=== PATIENT | female | born 1950 | race African-American/Black ===

== ENCOUNTER 2018-11-30 10:35 | Emergency (ER) | payer MEDICARE ==
[~2018-11-30] VITALS: Ht 170.2 cm; Wt 112.0 kg
--- OUTSIDE RECORDS SUMMARY | 2018-11-30 10:37 | XMS REPORT | Clinical Summary ---
Author Author KELLY [facility] Organization [facility] Address Unknown Phone Unavailable Care Team Providers Care Shovel Mechanic Name Role Phone GabbyLul Pawan PCP Allergies Comments Active Allergy Reactions Severity Noted Date Adhesive Rash Low 09/12/2015 Amoxicillin Nausea And 12/20/2017 Vomiting Sulfamethoxazole-Trimetho Nausea And 09/12/2015 prim Vomiting Ciprofloxacin Nausea And 09/12/2015 Vomiting Clindamycin Nausea And 09/12/2015 Vomiting Hydrocodone-Acetaminophen Nausea And 12/20/2017 Vomiting myalgia Simvastatin Other (See 09/12/2015 Comments) Medications End Date Status Medication Sig Dispensed Refills Start Date Active atorvastatin (LIPITOR) 10 Take 10 mg by 0 MG tablet mouth daily. Active fluticasone (FLONASE) 50 1 spray by 0 mcg/actuation nasal spray Nasal route daily. Active levothyroxine (SYNTHROID, Take 100 mcg 0 LEVOTHROID) 100 MCG by mouth tablet Every morning on an empty stomach. Active losartan (COZAAR) 100 MG Take 100 mg 0 tablet by mouth daily. Active ranitidine (ZANTAC) 150 Take 150 mg 0 MG capsule by mouth daily . Active pentosan polysulfate Take 100 mg 0 (ELMIRON) 100 mg capsule by mouth 3 (three) times daily before meals. Active oxybutynin (DITROPAN-XL) Take 5 mg by 0 5 MG 24 hr tablet mouth daily. Active magnesium hydroxide (MILK Take 30 mLs 1 Bottle 0 OF MAGNESIA) 400 mg/5 mL by mouth 6 Susp daily as needed. Active albuterol sulfate (PROAIR Inhale by 0 HFA INHL) mouth via inhaler. Active amLODIPine (NORVASC) 10 Take 10 mg by 0 MG tablet mouth daily. Active pantoprazole (PROTONIX) Take 40 mg by 0 40 MG tablet mouth daily. 12/20/2017 Discontinued amLODIPine (NORVASC) 5 MG Take 5 mg by 0 tablet mouth daily. 12/20/2017 Discontinued indapamide (LOZOL) 2.5 MG Take 2.5 mg 0 tablet by mouth every morning. 12/25/2017 Discontinued azithromycin (ZITHROMAX) Take 250 mg 0 250 MG tablet by mouth daily Take by mouth as directed. . 12/25/2017 Discontinued traMADol (ULTRAM) 50 mg Take 50 mg by 0 tablet mouth every 6 (six) hours as needed for Pain. 01/25/2018 aspirin 325 MG EC tablet Take 1 tablet 30 tablet 0 (325 mg 8 total) by mouth daily for 30 days. 01/24/2018 oxyCODONE-acetaminophen Take 1-2 120 tablet 0 (PERCOCET) 5-325 mg per tablets by 8 tablet mouth every 4 (four) hours as needed for Pain for up to 30 days. Max Daily Amount: 12 tablets 01/01/2018 promethazine (PHENERGAN) Take 1 tablet 30 tablet 0 12.5 MG tablet (12.5 mg 8 total) by mouth every 6 (six) hours as needed for Nausea for up to 7 days. 01/09/2018 methocarbamol (ROBAXIN) Take 1 tablet 60 tablet 0 500 MG tablet (500 mg 8 total) by mouth 4 (four) times daily for 15 days. Active Problems Problem Noted Date Arthritis of left knee 12/23/2017 DJD (degenerative joint disease) of knee 12/23/2017 Osteoarthrosis, localized, primary, knee, right 10/10/2015 Right knee DJD 10/10/2015 Encounters Care Team Description Date Type Specialty Jad Mills MD ARTHROPLASTY,KNEE UNILATERAL 12/23/2017 Surgery Mansoor Mckeon MD 12/23/2017 Anesthesia Event Jad Mills MD 12/23/2017 [facility] General Internal Medicine - Encounter 12/25/2017 Jad Mills MD Resource, Oqmt Preadmit Phone 12/20/2017 Hospital Pre-Admission Testing Encounter Annie Browne PA 12/11/2017 Orders Only after 11/29/2017 Social History Date Tobacco Use Types Packs/Day Years Used Never Smoker Smokeless Tobacco: Never Used Alcohol Use Drinks/Week oz/Week Comments No Sex Assigned at Date Recorded Not on file Industry Job Start Date Occupation Not on file Not on file Not on file Travel End Travel History Travel Start No recent travel history available. Last Filed Vital Signs Time Taken Vital Sign Reading 12/25/2017 12:10 PM CDT Blood Pressure 155/67 12/25/2017 12:10 PM CDT Pulse 73 12/25/2017 12:10 PM CDT Temperature 36.4 C (97.5 F) 12/25/2017 12:10 PM CDT Respiratory Rate 16 12/25/2017 12:10 PM CDT Oxygen Saturation 98% - Inhaled Oxygen - Concentration 12/23/2017 6:18 AM CDT Weight 113.4 kg (250 lb) 12/23/2017 6:18 AM CDT Height 170.2 cm (5' 7") 12/23/2017 6:18 AM CDT Body Mass Index 39.16 Plan of Treatment Not on file Implants Device Identifier Shelf Expiration Date Model / Serial / Lot Implanted Type Area Manufactur er 04/06/2017 6194-1-001 / / [id number] Cement Bone Smplx Hv 6194-1-001 - Cement/Damon Right: Knee PAIGE:ST [id number] ler/Adhesi AUDREY Implanted: Qty: 1 on 10/10/2015 by Jad Perez MD 03/07/2019 6194-1-001 / / [id number] Cement Bone Smplx Hv 6194-1-001 - Cement/Damon Left: Knee PAIGE:ST [id number] ler/Adhesi AUDREY Implanted: Qty: 1 on 12/23/2017 by Jad Perez MD 08/15/2020 5550-L-339 / / [id number] Patella Tri Asymmetric 33x9mm Joints Right: Knee PAIGE:ST 5550-L-339 - [id number] AUDREY Implanted: Qty: 1 on 10/10/2015 by Jad Calles MD CS 08/07/2020 5510-F-402 / / [id number] Femoral #4 R 5510-F-402 - Joints Right: Knee PAIGE:ST [id number] AUDREY Implanted: Qty: 1 on 10/10/2015 by Jad Calles MD 08/29/2020 5520-B-300 / / [id number] Baseplt Tri Prim Tib 3 5520-B-300 - Joints Right: Knee PAIGE:ST [id number] AUDREY Implanted: Qty: 1 on 10/10/2015 by Jad Calles MD 06/10/2020 5531-G-309 / / [id number] Insrt Tib Bearing #3 9mm X1 - Joints Right: Knee PAIGE:ST [id number] AUDREY Implanted: Qty: 1 on 10/10/2015 by Jad Calles MD 10/31/2020 5537-G-311 / / [id number] Insrt Tib + Stab X3#3 11mm Ts Joints Left: Knee PAIGE:ST 5537-G-311 - [id number] AUDREY Implanted: Qty: 1 on 12/23/2017 by Jad Calles MD 07/28/2022 5550-L-319 / / [id number] Patella Tri Asymmetric 31x9mm Joints Left: Knee PAIGE:ST 5550-L-319 - [id number] AUDREY Implanted: Qty: 1 on 12/23/2017 by Jad Calles MD 07/28/2022 5515-F-301 / / [id number] Comp Fem Ps Raymundo No.3 L 5515-F-301 - Joints Left: Knee PAIGE:ST [id number] AUDREY Implanted: Qty: 1 on 12/23/2017 by Jad Calles MD 10/29/2022 5521-B-300 / / [id number] Baseplt Triathlon Ts Sz3 5521-B-300 Joints Left: Knee PAIGE:ST - [id number] AUDREY Implanted: Qty: 1 on 12/23/2017 by Jad Calles MD Procedures Comments Procedure Name Priority Date/Time Associated Diagnosis RHYTHM STRIP - SCAN 12/30/2017 9:40 AM CDT HEMOGLOBIN AND HEMATOCRIT Routine 12/25/2017 4:36 AM CDT BASIC METABOLIC PANEL (7) Routine 12/25/2017 4:36 AM CDT TRANSFUSION SERVICE 12/24/2017 REPORT - SCAN 6:01 PM CDT HEMOGLOBIN AND HEMATOCRIT Routine 12/24/2017 4:01 AM CDT BASIC METABOLIC PANEL (7) Routine 12/24/2017 4:01 AM CDT ARTHROPLASTY,KNEE 12/23/2017 Primary osteoarthritis of UNILATERAL 9:55 AM CDT left knee Special Needs (SPINAL EPIDURAL ADDUCTOR CANAL BLOCK, PAIGE TRIATHLON) TISSUE EXAM AP Routine 12/23/2017 9:40 AM CDT ANESTHESIA PERIPHERAL Routine 12/23/2017 BLOCK 8:58 AM CDT ANESTHESIA SPINAL BLOCK Routine 12/23/2017 8:58 AM CDT TYPE AND SCREEN, Routine 12/23/2017 AUTOMATED 7:50 AM CDT after 11/29/2017 Results * RHYTHM STRIP - SCAN (12/30/2017 9:40 AM CDT) Narrative Performed At * Hemoglobin and hematocrit (12/25/2017 4:36 AM CDT) Only the most recent of 2 results within the time period is included. Hemoglobin 10.8 (L) 11.2 - 15.7 GM/DL [facility] Hematocrit 32.9 (L) 34.1 - 44.9 % [facility] Specimen Blood Performing Organization Address City/State/Zipcode Phone Number [facility] [address] [place] [address] MEDICAL CENTER * Basic Metabolic Panel (12/25/2017 4:36 AM CDT) Only the most recent of 2 results within the time period is included. Sodium 139 136 - 145 meq/L [facility] Potassium 4.0 3.5 - 5.1 meq/L [facility] Chloride 109 (H) 98 - 107 meq/L [facility] CO2 23 22 - 29 meq/L [facility] BUN 15 7 - 21 mg/dL [facility] Creatinine 0.88 0.57 - 1.25 mg/dL [facility] Glucose 85 70 - 105 mg/dL [facility] Calcium 8.8 8.4 - 10.2 mg/dL [facility] EGFR 78Comment: ESTIMATED GFR IS mL/min/1.73 sq m [facility] NOT ACCURATE CREATININE [facility] CLEARANCE IN PREDICTING GLOMERULAR FILTRATION RATE. ESTIMATED GFR IS NOT APPLICABLE FOR DIALYSIS PATIENTS. Specimen Blood Performing Organization Address City/State/Zipcode Phone Number [place] [phone] [place] [address] [facility] * TRANSFUSION SERVICE REPORT - SCAN (12/24/2017 6:01 PM CDT) Narrative Performed At * Tissue Exam (12/23/2017 9:40 AM CDT) Case Report Surgical Pathology [facility] Report [facility] Case: [id number] Authorizing Provider:Jad Mills,Collected: 12/23/2017 0940 Ordering Location: [facility] PERIOPERATIVE Received: 12/23/2017 1121 SERVICES Pathologist: Facundo Ybarra MD Specimen:Condyle,Left Knee DIAGNOSIS BONE, LEFT KNEE, ARTHROPLASTY: [facility] -OSTEOARTHRITIS [facility] Signing Pathologist Direct Phone Line: [phone] CPT Code(s) 76428 [facility] [address] [facility] CLINICAL HISTORY Primary osteoarthritis left [facility] knee [facility] SPECIMEN SOURCE Left knee condyle [facility] GROSS DESCRIPTION Received fresh labeled [facility] "condyle, left knee" are [facility] multiple irregular, david-white to yellow-ge portions of soft and osseous tissue to include the tibial plateau and femoral condyles measuring 13.5 x 9.5 x 1.5 cm in aggregate. The articular surfaces are david-white to yellow-ge and display focal areas of eburnation with obliteration of the demarcation between cortical and cancellous bone in these areas on cross section. Section code: A1-A2, bone for decalcification; A3, soft tissue for decalcification. DB/ew MICROSCOPIC DESCRIPTION The sections show [facility] reduplication of the [facility] with eburnation and osteophyte formation. The synovial tissue reveals subsynovial edema with chronic inflammation. Specimen Tissue - Condyle,Left Knee Performing Organization Address City/State/Zipcode Phone Number [facility] [address] [place] [address] [facility] * ANESTHESIA PERIPHERAL BLOCK (12/23/2017 8:58 AM CDT) Narrative Performed At Piero Rossi 12/23/20178:58 AM Peripheral Block Patient location during procedure: pre-op Start time: 12/23/2017 8:35 AM End time: 12/23/2017 8:45 AM Staffing Anesthesiologist: MANSOOR MCKEON Resident/BEATER TENDER: PIERO ROSSI Performed by: resident/BEATER TENDER Preanesthetic Checklist Completed: patient identified, site marked, surgical consent, pre-op evaluation, timeout performed, IV checked, risks and benefits discussed and monitors and equipment checked Peripheral Block Patient position: supine Prep: ChloraPrep Patient monitoring: special events driver, continuous pulse ox and heart rate Block type: Adductor canal Laterality: left Injection technique: catheter Procedures: ultrasound guided and landmark technique Local infiltration: ropivicaine Infiltration strength: 0.5 % Dose: 25 mL Needle Needle type: Tuohy Needle gauge: 17 G Needle length: 100 mm Assessment Injection assessment: local visualized surrounding nerve on ultrasound, incremental injection, no paresthesia on injection and negative aspiration for heme Paresthesia pain: none Heart rate change: no Slow fractionated injection: yes Additional Notes Patient remained HDS throughout the procedure. No complications. Dr. Mckeon present throughout the procedure. Piero Rossi MD Anesthesia- PGY 3 [facility] Procedure Note Piero Rossi MD - 12/23/2017 8:57 AM CDT Peripheral Block Patient location during procedure: pre-op Start time: 12/23/2017 8:35 AM End time: 12/23/2017 8:45 AM Staffing Anesthesiologist: MANSOOR MCKEON Resident/BEATER TENDER: PIERO ROSSI Performed by: resident/BEATER TENDER Preanesthetic Checklist Completed: patient identified, site marked, surgical consent, pre-op evaluation, timeout performed, IV checked, risks and benefits discussed and monitors and equipment checked Peripheral Block Patient position: supine Prep: ChloraPrep Patient monitoring: special events driver, continuous pulse ox and heart rate Block type: Adductor canal Laterality: left Injection technique: catheter Procedures: ultrasound guided and landmark technique Local infiltration: ropivicaine Infiltration strength: 0.5 % Dose: 25 mL Needle Needle type: Tuohy Needle gauge: 17 G Needle length: 100 mm Assessment Injection assessment: local visualized surrounding nerve on ultrasound, incremental injection, no paresthesia on injection and negative aspiration for heme Paresthesia pain: none Heart rate change: no Slow fractionated injection: yes Additional Notes Patient remained HDS throughout the procedure. No complications. Dr. Mckeon present throughout the procedure. Piero Rossi MD Anesthesia- PGY 3 [facility] * ANESTHESIA SPINAL BLOCK (12/23/2017 8:58 AM CDT) Narrative Performed At Piero Rossi 12/23/20178:58 AM Spinal Block Patient location during procedure: Block Room Start time: 12/23/2017 8:24 AM End time: 12/23/2017 8:28 AM Staffing Anesthesiologist: MANSOOR MCKEON Resident/BEATER TENDER: PIERO ROSSI Performed by: anesthesiologist and resident/BEATER TENDER Preanesthetic Checklist Completed: patient identified, site marked, surgical consent, pre-op evaluation, timeout performed, IV checked, risks and benefits discussed and monitors and equipment checked Spinal Block Patient position: sitting Prep: Betadine Patient monitoring: heart rate, special events driver and continuous pulse ox Approach: midline Location: L2-3 Injection technique: single-shot Needle Needle type: [facility]. Needle gauge: 25 G Needle length: 13 cm Assessment Sensory level: T10 Events: cerebrospinal fluid Additional Notes Patient remained HDS throughout the procedure. No complications. Dr. Mckeon present throughout the procedure. Piero Rossi MD Anesthesia- PGY 3 [facility] Procedure Note Piero Rossi MD - 12/23/2017 8:56 AM CDT Spinal Block Patient location during procedure: Block Room Start time: 12/23/2017 8:24 AM End time: 12/23/2017 8:28 AM Staffing Anesthesiologist: MANSOOR MCKEON Resident/BEATER TENDER: PIERO ROSSI Performed by: anesthesiologist and resident/BEATER TENDER Preanesthetic Checklist Completed: patient identified, site marked, surgical consent, pre-op evaluation, timeout performed, IV checked, risks and benefits discussed and monitors and equipment checked Spinal Block Patient position: sitting Prep: Betadine Patient monitoring: heart rate, special events driver and continuous pulse ox Approach: midline Location: L2-3 Injection technique: single-shot Needle Needle type: [facility]. Needle gauge: 25 G Needle length: 13 cm Assessment Sensory level: T10 Events: cerebrospinal fluid Additional Notes Patient remained HDS throughout the procedure. No complications. Dr. Mckeon present throughout the procedure. Piero Rossi MD Anesthesia- PGY 3 [facility] * Type and screen, automated (12/23/2017 7:50 AM CDT) ABO/RH AUTOMATED (BEAKER) A POSITIVE [facility] Ab Scrn NEGATIVE [facility] Specimen Blood Performing Organization Address City/State/Zipcode Phone Number [facility] [address] [place], [place] [phone] [facility] after 11/29/2017 Insurance Payer Benefit Subscriber ID Type Phone Address Plan / Group [facility] [facility] xxxxxxxxxxx MEDICARE ADV Advance Directives For more information, please contact: [place] [phone] [place], [place] [phone] Date Inactivated Comments Code Status Date Activated 12/25/2017 6:31 PM Full Code 12/24/2017 7:25 AM This code status was determined by: Patient 12/23/2017 1:58 PM Full Code 12/23/2017 7:23 AM This code status was determined by: Patient 10/10/2015 5:24 PM Full Code 10/10/2015 7:41 AM This code status was determined by: Patient
--- OUTSIDE RECORDS SUMMARY | 2018-11-30 10:37 | XMS REPORT ---
Author Author [facility] Address Unknown Phone Unavailable Care Team Providers Care Salt Plant Operator Name Role Phone DANISH MILLS Unavailable Unavailable Problems This patient has no known problems. Allergies, Adverse Reactions, Alerts This patient has no known allergies or adverse reactions. Medications This patient has no known medications. Results Test Description Test Time Test Comments Text Results Atomic Results Result Comments TISSUE EXAM 2017-12-27 09:10:00 Surgical Pathology Report Case: [id number] Authorizing Provider: Jad Mills, Collected: 12/23/2017 0940 Ordering Location: [facility] PERIOPERATIVE Received: 12/23/2017 1121 SERVICES Pathologist: Facundo Ybarra MD Specimen: Condyle,Left Knee BONE, LEFT KNEE, ARTHROPLASTY: -OSTEOARTHRITIS Signing Pathologist Direct Phone Line: [phone] signed by Facundo Ybarra MD on 12/27/2017 at 9:10 [id number] osteoarthritis left knee Left knee condyle Received fresh labeled "condyle, left knee" are multiple irregular, david-white to yellow-ge portions of soft and osseous tissue to include the tibial plateau and femoral condyles measuring 13.5 x 9.5 x 1.5 cm in aggregate. The articular surfaces are david-white to yellow-ge and display focal areas of eburnation with obliteration of the demarcation between cortical and cancellous bone in these areas on cross section.Section code: A1-A2, bone for decalcification; A3, soft tissue for decalcification. DB/ewThe sections show reduplication of the tidemark with eburnation and osteophyte formation.The synovial tissue reveals subsynovial edema with chronic inflammation. BASIC METABOLIC PANEL 2017-12-25 06:23:00 SODIUM (BEAKER) (test zevp=367) 139 meq/L 136-145 POTASSIUM (BEAKER) (test iabv=909) 4.0 meq/L 3.5-5.1 CHLORIDE (BEAKER) (test aqah=648) 109 meq/L 98-107 CO2 (BEAKER) (test mylj=655) 23 meq/L 22-29 BLOOD UREA NITROGEN (BEAKER) (test gobg=945) 15 mg/dL 7-21 CREATININE (BEAKER) (test gjql=849) 0.88 mg/dL 0.57-1.25 GLUCOSE RANDOM (BEAKER) (test fjmv=559) 85 mg/dL 70-105 CALCIUM (BEAKER) (test hbos=782) 8.8 mg/dL 8.4-10.2 EGFR (BEAKER) (test nrba=4063) 78 mL/min/1.73 sq m ESTIMATED GFR IS NOT ACCURATE CREATININE CLEARANCE IN PREDICTING GLOMERULAR FILTRATION RATE. ESTIMATED GFR IS NOT APPLICABLE FOR DIALYSIS PATIENTS. HEMOGLOBIN AND [id number] 06:09:00* Test Item Value Reference Range Comments HEMOGLOBIN (BEAKER) (test mepv=112) 10.8 GM/DL 11.2-15.7 HEMATOCRIT (BEAKER) (test uhpi=534) 32.9 % 34.1-44.9 BASIC METABOLIC [id number] 05:19:00* Test Item Value Reference Range Comments SODIUM (BEAKER) (test wenj=165) 136 meq/L 136-145 POTASSIUM (BEAKER) (test tzcm=077) 4.4 meq/L 3.5-5.1 CHLORIDE (BEAKER) (test liut=524) 106 meq/L 98-107 CO2 (BEAKER) (test yzeu=526) 23 meq/L 22-29 BLOOD UREA NITROGEN (BEAKER) (test rgss=318) 16 mg/dL 7-21 CREATININE (BEAKER) (test rxsq=496) 0.95 mg/dL 0.57-1.25 GLUCOSE RANDOM (BEAKER) (test soob=595) 143 mg/dL 70-105 CALCIUM (BEAKER) (test levl=074) 8.9 mg/dL 8.4-10.2 EGFR (BEAKER) (test kbuq=3809) 71 mL/min/1.73 sq m ESTIMATED GFR IS NOT ACCURATE CREATININE CLEARANCE IN PREDICTING GLOMERULAR FILTRATION RATE. ESTIMATED GFR IS NOT APPLICABLE FOR DIALYSIS PATIENTS. HEMOGLOBIN AND [id number] 04:56:00* Test Item Value Reference Range Comments HEMOGLOBIN (BEAKER) (test njox=058) 11.4 GM/DL 11.2-15.7 HEMATOCRIT (BEAKER) (test nwwa=338) 35.4 % 34.1-44.9
[2018-11-30] MEDS ORDERED: IPRATROPIUM BROMIDE 0.02% 2.5 ML NEB NEB STA (10:39)
[2018-11-30] MEDS ORDERED: ALBUTEROL SULF 0.083% NEB SOLN 3 ML NEB NEB STA (10:39)
[2018-11-30] MEDS ORDERED: DEXAMETHASONE SOD PHOS 10 MG/1 ML VIAL IM ONE (11:30)
--- NOTE | 2018-11-30 12:00 | Diagnostic Imaging Report ---
EXAMINATION: CHEST 2 VIEWS INDICATION: Cough. COMPARISON: None FINDINGS: PA and lateral views TUBES and LINES: None. LUNGS: Lungs are well inflated. Bilateral peribronchial cuffing. There is no evidence of pneumonia or pulmonary edema. PLEURA: No pleural effusion or pneumothorax. HEART AND MEDIASTINUM: The cardiomediastinal silhouette is unremarkable. BONES AND SOFT TISSUES: No acute osseous lesion. Soft tissues are unremarkable. UPPER ABDOMEN: No free air under the diaphragm. IMPRESSION: Bilateral peribronchial cuffing, which could represent viral etiology or reactive airway disease. Signed by: Dr. Carlitos Carrasquillo M.D. on 11/30/2018 11:57 AM
[2018-11-30 12:30] VITALS: BP 136/68
== END 2018-11-30 12:42 | disposition home or self-care (01) ==
LOC: ER 10:35
DX: J20.9 Acute bronchitis, unspecified (principal); J02.9 Acute pharyngitis, unspecified; I10 Essential (primary) hypertension
CPT/HCPCS: 71046; 94640; 99283; J1100